=== PATIENT | female | born 1980 | race Caucasian/White ===

== ENCOUNTER 2023-12-25 10:20 | Emergency (ER) | payer MEDICARE, MEDICAID, SELFPAY ==
[2023-12-25 10:22] VITALS: BP 168/87; PULSE 85; RESP 18; TEMP 36.6; O2SAT 100; BMI 70.7
--- NOTE | 2023-12-25 10:52 | EX.ED.DYSGE1 ---
HPI History of Present Illness Chief Complaint: Rash Narrative Narrative: Patient is a 43-year-old female with past medical history hypertension not currently on medications as she is homeless she states who presents to the emergency department chief complaint of concern for poison oak. Patient states that she is homeless and is currently living in the [place] and in a tent and notes that she developed itchy rash on her right lower extremity which has now spread throughout her lower extremities and up on her arms. She states that she has on her abdomen as well as very itchy in nature. States that she tried [id number] calamine lotion without any relief. [facility] Medical History Hypertension Home Medications ?Medication ?Instructions ?Recorded ?Last Taken ?Type methylprednisolone 4 mg tablets in See Rx Instructions PO .COMPLEX 12/25/23 Unknown Rx a dose pack (Methylpred DP) #21 tabs Allergy/AdvReac Type Severity Reaction Status Date / Time No Known Allergies Allergy Verified 12/25/23 10:22 Social History Smoking Status: Never smoker ROS ROS ED ROS Narrative Constitutional: Denies any fevers, chills, headaches, lightness, dizziness, Cardiovascular: Denies chest pain Respiratory: Denies shortness of breath Abdomen: Denies nausea vomit diarrhea Neurological: Denies numbness, weakness, tingling Skin: Complains of concern for poison oak as noted above EXAM Physical Exam Narrative Exam Narrative: General: Patient lying in bed rest comfortably did not appear to be in acute distress Head: Atraumatic, normocephalic Eyes: PERRL bilaterally, EOMI bilateral, no conjunctival injection noted Neck: Soft, supple, trachea midline Cardiovascular: Regular rate and rhythm no murmurs gallops rubs noted Respiratory: Clear to auscultation bilaterally Neurological: Patient follow commands knew that she was at [facility] year is 2023 Skin: Warm, dry, patient has multiple areas excoriation noted throughout her body with calamine lotion over some of these areas. No sloughing of the skin no petechia no purpura noted rash does appear to be scratched at no surrounding area or evidence of infection of these lesions. Const Vital Signs: 12/25/23 10:22 Temperature 97.8 F Temperature Source Oral Pulse Rate 85 Respiratory Rate 18 Blood Pressure 168/87 H Blood Pressure Mean 114 Pulse Ox 100 Oxygen Delivery Method Room Air MDM MDM MDM Narrative Medical decision making narrative: Patient is a 43-year-old male who presents to the emergency department chief complaint of itchy rash and concern for poison oak. On the differential diagnose includes but not limited to poison oak, poison tory, other contact dermatitis. Patient will be given prescription for steroid taper. She was encouraged to follow-up with a primary care physician for which she will be referred to as well as return to the emergency department with worsening symptoms or any other concerns. She and her family member are agreeable with this plan at bedside. She states that she will be able obtain the prescription if prescribed. All question concerns answered she was discharged home in stable condition. Discharge Plan Triage Chief Complaint: Rash ED Provider: Rashawn Gallardo Dx/Rx/DC Orders Clinical Impression: Contact dermatitis due to poison oak Prescriptions: New methylprednisolone [Methylpred DP] 4 mg tablets,dose pack See Rx Instructions .ROUTE .COMPLEX Qty: 21 0RF Rx Instructions: orally per package directions for 12 days Primary Care Provider: NOT,DEFINED Referrals: NOT,DEFINED [Primary Care Provider] - Preston Farias MD [Med Staff - Active Staff] - Activity Restrictions/Additional Instructions: Take steroid taper as prescribed. Follow-up with her primary care physician for which she referred to. Return with worsening symptoms or other concerns. Print Language: Korean Disposition Disposition: Home, Self Care
== END 2023-12-25 11:19 | disposition home or self-care (01) ==
LOC: ED 11:18
PROVIDERS: Emergency Provider Emergency Medicine; Visit Provider Emergency Medicine
DX: L25.5 Unspecified contact dermatitis due to plants, except food (principal); I10 Essential (primary) hypertension; Z59.00 Homelessness unspecified
CPT/HCPCS: 99282